=== PATIENT | female | born 1980 | race Two or more races ===

== ENCOUNTER 2021-01-12 20:47 | Emergency (ER) | payer OTHER ==
[~2021-01-12] VITALS: Ht 154.9 cm; Wt 60.9 kg
--- NOTE | 2021-01-12 21:36 | PHYS DOC ---
Past Medical History Past Medical History: No Pertinent History Past Surgical History: No Surgical History Smoking Status: Never Smoker Alcohol Use: Occasionally General Adult EDM: Chief Complaint: DIZZY/LIGHT HEADED HPI: HPI: 40-year-old female with no significant past medical history presents to the ED with complaints of dizziness and lightheadedness with one episode of nonbloody nonbilious vomiting shortly after patient took 2.5 mg of liquid oxycodone she received from her son around 5 PM (was prescribed after her throat surgery). Patient complains of left buttock and SI joint pain with radiation down the leg for the past 3 days. Some relief with ibuprofen but reports oxycodone provided significant relief. Denies any history of tobacco, IV or illicit drug use. Review of Systems: Review of Systems: Constitutional: Denies fever or chills. [] Eyes: Denies change in visual acuity. [] HENT: Denies nasal congestion or sore throat. [] Respiratory: Denies cough or shortness of breath. [] Cardiovascular: Denies chest pain or edema. [] GI: Denies abdominal pain, nausea, vomiting, bloody stools or diarrhea. [] : Denies hematuria or vaginal bleeding Musculoskeletal: Denies back pain or joint pain. [] Integument: Denies rash or diaphoresis Neurologic: Denies headache, focal weakness or sensory changes. [] Endocrine: Denies polyuria or polydipsia. [] Lymphatic: Denies swollen glands. [] Psychiatric: Denies depression or anxiety. [] Heart Score: C/O Chest Pain: No Risk Factors: Risk Factors: DM, Current or recent (<one month) smoker, HTN, HLP, family history of CAD, obesity. Risk Scores: Score 0 - 3: 2.5% MACE over next 6 weeks - Discharge Home Score 4 - 6: 20.3% MACE over next 6 weeks - Admit for Clinical Observation Score 7 - 10: 72.7% MACE over next 6 weeks - Early Invasive Strategies Allergies: Allergies: Allergies Coded Allergies Type Severity Reaction Last Updated Verified No Known Drug Allergies 01/12/21 No Physical Exam: PE: Constitutional: Well developed, well nourished, no acute distress, non-toxic appearance. HENT: Normocephalic, atraumatic, Eyes: EOMI, conjunctiva normal, no discharge. Neck: Normal range of motion, supple, Cardiovascular: S1/2 present, regular rhythm Lungs & Thorax: Speaking in full sentences, bilateral equal chest rise, no tachypnea or increased work of breathing Abdomen: soft, no tenderness, Skin: Warm, dry, no erythema, no rash. [] Back: No midline tenderness, no CVA tenderness, pain is localized over left SI joint and left buttock, straight leg positive on left lower extremity Extremities: No tenderness, no cyanosis, no lower extremity edema Neurologic: Alert and oriented X 3, normal motor function, normal sensory function, no focal deficits noted. [] Psychologic: Affect normal, judgement normal, mood normal. [] Current Patient Data: Vital Signs: Vital Signs Date Time Temp Pulse Resp B/P (MAP) Pulse Ox O2 Delivery O2 Flow Rate FiO2 01/12/21 20:53 98.7 88 20 163/103 (123) 98 Room Air 98.7 EKG: EKG: Sinus rhythm 76 bpm, no axis deviation, QTC 445, T wave inversion lead III, no ST elevations or ST depressions Radiology/Procedures: Radiology/Procedures: IMAGING REPORT Signed PATIENT: KELLY ENG ACCOUNT: [id number] : 1980 LOCATION: ER AGE: 40 SEX: F EXAM STATUS: REG ER ORD. PHYSICIAN: GRANT MELGAR DO REASON: left hip pain, flank? +UTI PROCEDURE: CT ABDOMEN PELVIS WO CONTRAST Exam: CT of abdomen and pelvis without contrast INDICATION: Left hip pain, flank TECHNIQUE: Sequential axial images through the abdomen and pelvis obtained without IV contrast. Sagittal and coronal reformatted images were reconstructed from the axial data and reviewed. Comparisons: None FINDINGS: Heart size is normal. No pericardial effusion. Visualized lung bases are clear. No pleural effusion. Evaluation of solid organs is limited secondary to noncontrast technique. Liver, spleen, pancreas, gallbladder and adrenals are unremarkable. No perinephric inflammation or hydronephrosis. No renal or ureteral calculi are identified. Bladder is partially distended and not well evaluated. Uterus is not enlarged. No abnormal adnexal mass. Large and small bowel are unremarkable. Appendix is not identified. No free intra-abdominal air or fluid. No obstruction. Abdominal aorta has a normal course and caliber. No enlarged intra-abdominal lymph nodes are identified. No suspicious osseous lesions or acute fractures. IMPRESSION: No acute process identified within the abdomen or pelvis. Exposure: One or more of the following in the visualized dose reduction techniques were utilized for this examination: 1. Automated exposure control 2. Adjustment of the MA and/or KV according to patient size 3. Use of iterative of reconstructive technique Electronically signed by: Grzegorz Ac MD (01/12/2021 11:51 PM) [facility] DICTATED and SIGNED BY: GRZEGORZ AC MD DATE: 01/12/21 [id number] 0 IMAGING REPORT Signed PATIENT: KELLY ENG ACCOUNT: [id number] : 1980 LOCATION: ER AGE: 40 SEX: F EXAM STATUS: REG ER ORD. PHYSICIAN: GRANT MELGAR DO REASON: left si joint pain PROCEDURE: SACROILIAC JOINTS 3V Study: XR SACROILIAC JOINTS 3+ VIEWS Indication: Left sacroiliac joint pain. Comparison: None. Findings: Similar configuration of the right and left sacroiliac joints. No discrete er osion or ankylosis. Continuous sacral arcuate lines. Within normal limits hips and pubic symphysis. No advanced spondylosis at the lower lumbar spine. Impression: No radiographic evidence for sacroiliitis. No significant arthrosis seen throughout the pelvis. Electronically signed by: ANA ROSA BABCOCK MD (01/12/2021 10:25 PM) [facility] DICTATED and SIGNED BY: ANA ROSA BABCOCK MD DATE: 01/12/21 [id number] 0 Course & Med Decision Making: Course & Med Decision Making Pertinent Labs and Imaging studies reviewed. (See chart for details) Concern for vomiting after using oxycodone likely medication adverse effect although pyelonephritis is considered. CT imaging with no perinephric fat st randing or nephrolithiasis. Patient does have leukocytosis and bandemia (meets sepsis criteria) but she is very well-appearing, no further episodes of vomiting, afebrile and not toxic appearing. Will prescribe lidopatch for patient's left SI joint pain, likely sciatica. Patient has no saddle anesthesia, urine or bowel retention or incontinence. Will discharge home with strict ED return precautions were given for flulike symptoms, neurologic deficits, saddle anesthesia, urinary retention, dehydration, persistent nausea or vomiting, fevers or worsening pain. Encouraged urgent outpatient follow-up with PMD in 28 hours for reevaluation. Life-threatening processes were considered but are low suspicion at this time, given history, physical exam and ED workup. Pt was educated on all prescription medications and adverse effects. All patient's questions were answered and pt was stable at time of discharge. Life/limb-threatening differential includes but is not limited to, acute coronary syndrome/myocardial infarction, Boerhaave's, DKA, gastrointestinal bleeding, intracranial hemorrhage, ischemic bowel, meningitis, sepsis, surgical abdomen (AAA), toxidrome (drug over/overdose/carbon monoxide, etc), ovarian/testicular torsion, trauma, or infection/sepsis. I spoken with the patient and her caregivers. I explained the patient's condition, diagnoses and treatment plan based on the information available to me at this time. I have answered the patient and her caregiver's questions and addressed any concerns. The patient and her caregivers have a good understanding of patient's diagnosis, condition and treatment plan as can be expected at this point. Vital signs have been stable. Patient's condition is stable and appropriate for discharge from the emergency department. Patient will pursue further outpatient evaluation with primary care physician or other designated or consulting physician as outlined in the discharge instructions. The patient and/or caregivers are agreeable to this plan of care and follow-up instructions have been explained in detail. The patient and/or caregivers have received these instructions in written form and have expressed an understanding of the discharge instructions. The patient and/or caregivers are aware that any significant change of condition or worsening of symptoms should prompt immediate return to this or the closest emergency department or call to 911. Nasrin Disclaimer: Nasrin Disclaimer: This electronic medical record was generated, in whole or in part, using a voice recognition dictation system. Departure Departure Impression: Primary Impression: UTI (urinary tract infection) Additional Impression: Adverse drug effect Disposition: 01 DC HOME SELF CARE/HOMELESS Condition: STABLE Referrals: NO PCP (PCP) FOLLOW UP WITH PCP IN 24 HOURS FOR RE-EVALUATION FOLLOW UP WITH FAMILY MEDICINE: Family Medicine Address: [address] [place] [id number] Patient Instructions: Nausea and Vomiting, Urinary Tract Infection Additional Instructions: EMERGENCY DEPARTMENT GENERAL DISCHARGE INSTRUCTIONS Thank you for coming to [facility] Emergency Department (ED) today and trusting us with you care. We trust that you had a positive experience in our Emergency Department. If you wish to speak to the department management, you may call the Director at [phone]. YOUR FOLLOW UP INSTRUCTIONS ARE FOLLOWS: 1. Do you have a private Doctor? If you do not have a private doctor, please ask for a resource list of physicians or clinics that may be able to assist you with follow up care. 2. The Emergency Physicain has interpreted your x-rays. The X-Ray specialist will also review them. If there is a change in the findings, you will be notified in 48 hours when at all possible. 3. A lab test or culture has been done, your results will be reviewed and you will be notified if you need a change in treatment. ADDITIONAL INSTRUCTIONS AND INFORMATION: 1. Your care today has been supervised by a physician who is specially trained in emergency care. Many problems require more than one evaluation for a complete diagnosis and treatment. We recommend that you schedule your follow up appointment as recommended to ensure complete treatment of you illness or injury. If you are unable to obtain follow up care and continue to have a problem, or if your condition worsens, we recommend that you return to the ED. 2. We are not able to safely determine your condition over the phone nor are we able to give sound medical advice over the phone. For these safety reasons, if you call for medical advice we will ask you to come to the ED for further evaluation. 3. If you have any questions regarding these discharge instructions please call the ED at [phone]. SAFETY INFORMATION: In the interest of safety, wellness, and injury prevention; we encourage you to wear your sealbelt, if you smoke; quite smoking, and we encourage family to use a protective helmet for bicycling and other sporting events that present an increased risk for head injury. IF YOUR SYMPTOMS WORSEN OR NEW SYMPTOMS DEVELOP, OR YOU HAVE CONCERNS ABOUT YOUR CONDITION; OR IF YOUR CONDITION WORSENS WHILE YOU ARE WAITING FOR YOUR FOLLOW UP APPOINTMENT; EITHER CONTACT YOUR PRIMARY CARE DOCTOR, THE PHYSICIAN WHOSE NAME AND NUMBER YOU WERE GIVEN, OR RETURN TO THE ED IMMEDIATELY. Scripts Lidocaine (Lido Mejia) 1 Each Adh..patch 1 EACH TP DAILY for 5 Days, #5 PATCH Apply 1 patch for 12 hours, remove for another 12 hours. May repeat, 1 patch per day as instructed above. Prov: GRANT MELGAR DO 01/13/21 Cephalexin (CEPHALEXIN) 500 Mg Capsule 2 CAP PO BID for 10 Days, #40 CAP Prov: GRANT MELGAR DO 01/13/21 GRANT MELGAR DO Jan 12, 2021 21:36
[2021-01-12 21:39] LABS: BASO % 0 % (0-3); EOS # 0.1 x10^3/uL (0.0-0.7); EOS % 1 % (0-3); HEMATOCRIT 40.5 % (36.0-47.0); LYMPH # 0.9 x10^3/uL (1.0-4.8); LYMPH % 7 % (24-48); MEAN CORPUSCULAR HEMOGLOBIN 31 pg (25-35); MEAN CORPUSCULAR HGB CONC 35 g/dL (31-37); MEAN CORPUSCULAR VOLUME 90 fL (79-100); MONO # 0.3 x10^3/uL (0.0-1.1); MONO % 2 % (0-9); NEUT # 11.3 x10^3/uL (1.8-7.7); NEUT % 90 % (31-73); PLATELET COUNT 218 x10^3/uL (140-400); RED BLOOD COUNT 4.52 x10^6/uL (3.50-5.40); RED CELL DISTRIBUTION WIDTH 12.6 % (11.5-14.5); WHITE BLOOD COUNT 12.5 x10^3/uL (4.0-11.0)
[2021-01-12 21:51] LABS: CALCIUM 8.1 mg/dL (8.5-10.1); CREATININE 0.7 mg/dL (0.6-1.0); GFR 93.2; POTASSIUM 3.5 mmol/L (3.5-5.1)
[2021-01-12 21:56] LABS: PREG TEST PT QUAL NEGATIVE (NEG)
[2021-01-12 21:59] LABS: ALBUMIN/GLOBULIN RATIO 1.1 (1.0-1.7); TOTAL BILIRUBIN 0.5 mg/dL (0.2-1.0); TOTAL PROTEIN 7.8 g/dL (6.4-8.2)
[2021-01-12] MEDS ORDERED: LIDOCAINE (700MG/PATCH) PATCH. TD ONE (22:00)
[2021-01-12 22:13] LABS: BILIRUBIN,URINE NEGATIVE (NEG); CLARITY,URINE CLOUDY; COLOR,URINE YELLOW; NITRITE,URINE NEGATIVE (NEG); PROTEIN,URINE 30 mg/dL (NEG-TRACE)
[2021-01-12 22:18] LABS: BACTERIA,URINE MANY /HPF (0-FEW)
[2021-01-12 22:19] LABS: WBC,URINE >40 /HPF (0-4)
[2021-01-12 22:20] LABS: YEAST,URINE PRESENT /HPF
[2021-01-12 22:22] LABS: RBC,URINE RARE /HPF (0-2)
--- NOTE | 2021-01-12 22:27 | RAD ---
Study: XR SACROILIAC JOINTS 3+ VIEWS Indication: Left sacroiliac joint pain. Comparison: None. Findings: Similar configuration of the right and left sacroiliac joints. No discrete erosion or ankylosis. Continuous sacral arcuate lines. Within normal limits hips and pubic symphysis. No advanced spondylos is at the lower lumbar spine. Impression: No radiographic evidence for sacroiliitis. No significant arthrosis seen throughout the pelvis. Electronically signed by: ANA ROSA BABCOCK MD (01/12/2021 10:25 PM) [facility]
[2021-01-12 22:33] LABS: % BANDS 13 % (0-9); % LYMPHS 7 % (24-48); % METAS 1 % (0-0); % MONOS 3 % (0-10); % SEGS 76 % (35-66); PLT ESTIMATE ADEQUATE (ADEQUATE)
[2021-01-12 22:34] LABS: TOXIC GRANULATION SLIGHT
[2021-01-12] MEDS ORDERED: IV NORMAL SALINE 1000ML BAG 1,000 ML IV ONE (23:45)
[2021-01-12] MEDS ORDERED: cefTRIAXone IV Push 1 GM VIAL. IVP ONE (23:45)
--- NOTE | 2021-01-12 23:49 | EKG ---
[facility] [address] [place] [address] Test Date: 2021-01-12 Test Time: 21:20:58 Pat Name: KELLY ENG Department: Room: Gender: F Customer Support Professional: : 1980 Requested By: GRANT MELGAR Order Number: [id number] Reading MD: Measurements Intervals [place] Rate: 76 P: 57 [place]: 154 QRS: 26 QRSD: 78 T: 19 QT: 396 QTc: 445 Interpretive Statements SINUS RHYTHM NORMAL ECG RI6.02 No previous ECG available for comparison
--- NOTE | 2021-01-12 23:51 | NUR ---
advised CRISTIAN Sherman @[id number] that blood cultures and lactic are due
--- NOTE | 2021-01-12 23:53 | RAD ---
Exam: CT of abdomen and pelvis without contrast INDICATION: Left hip pain, flank TECHNIQUE: Sequential axial images through the abdomen and pelvis obtained without IV contrast. Sagit gauri and coronal reformatted images were reconstructed from the axial data and reviewed. Comparisons: None FINDINGS: Heart size is normal. No pericardial effusion. Visualized lung bases are clear. No pleural effusion. Evaluation of solid organs is limited secondary to noncontrast technique. Liver, spleen, pancreas, gallbladder and adrenals are unremarkable. No perinephric inflammation or hydronephrosis. No renal or ureteral calculi are identified. Bladder is partially distended and not well evaluated. Uterus is not enlarged. No abnormal adnexal ma ss. Large and small bowel are unremarkable. Appendix is not identified. No free intra-abdominal air or fl uid. No obstruction. Abdominal aorta has a normal course and caliber. No enlarged intra-abdominal lymph nodes are identified. No suspicious osseous lesions or acute fractures. IMPRESSION: No acute process identified within the abdomen or pelvis. Exposure: One or more of the following in the visualized dose reduction techniques were utilized for this examination: 1. Automated exposure control 2. Adjustment of the MA and/or KV according to patient size 3. Use of iterative of reconstructive technique Electronically signed by: Grzegorz Rodriges MD (01/12/2021 11:51 PM) [facility]
[2021-01-13] MEDS ORDERED: LIDO1ADH78 TP (02:53)
[2021-01-13] MEDS ORDERED: CEPH500C PO (02:53)
[2021-01-13 03:07] VITALS: BP 114/70
== END 2021-01-13 03:22 | disposition home or self-care (01) ==
LOC: ER 20:47
DX: R42 Dizziness and giddiness (principal); T40.2X5A Adverse effect of other opioids, initial encounter; N39.0 Urinary tract infection, site not specified; Y92.89 Other specified places as the place of occurrence of the external cause
CPT/HCPCS: 36415; 72202; 74176; 80053; 81001; 81025; 83605; 84703; 85007; 85025; 87040; 87086; 93005; 96361; 96374; 99285; J0696; J7030